=== PATIENT | male | born 1990 | race Two or more races ===

== ENCOUNTER 2024-05-22 10:18 | Emergency (ER) | payer SELFPAY ==
[2024-05-22] MEDS: Sodium Chloride 0.9% 10 ML Syringe FLUSH ONE (11:05)
[2024-05-22] MEDS: Iopamidol 612 MG/ML 100 ML Bottle IVPUSH ONE (11:05)
[2024-05-22] MEDS: HYDROmorphone 0.5 MG/0.5 ML Syringe IVPUSH ONE (11:37)
[2024-05-22] MEDS: Ketorolac 30 MG/ML SDV IVPUSH ONE (11:37)
[2024-05-22] MEDS: Sodium Chloride 0.9% 10 ML Syringe FLUSH PRN (11:42)
[2024-05-22 11:43] LABS: BASOPHILS PERCENT AUTO 0.4 % (0.0-1.0); EOSINOPHILS ABSOLUTE AUTO 0.1 K/mm3 (0.0-0.4); EOSINOPHILS PERCENT AUTO 0.9 % (0.0-6.0); HEMATOCRIT 49.4 % (42.0-52.0); HEMOGLOBIN 16.8 gm/dl (14.0-18.0); IMMATURE GRAN ABSOLUTE AUTO 0.04 K/mm3 (0.00-0.05); IMMATURE GRAN PERCENT AUTO 0.5 % (0.0-0.4); LYMPHOCYTES ABSOLUTE AUTO 2.2 K/mm3 (1.0-4.8); LYMPHOCYTES PERCENT AUTO 25.7 % (24.0-44.0); MEAN CORPUSCULAR HEMOGLOBIN 29.4 pg (28.0-32.0); MEAN CORPUSCULAR VOLUME 86.5 fl (83.0-99.0); MEAN PLATELET VOLUME 9.8 fl (9.4-12.4); MONOCYTES PERCENT AUTO 11.6 % (0.0-8.0); NEUTROPHILS ABSOLUTE AUTO 5.2 K/mm3 (1.8-7.7); NEUTROPHILS PERCENT AUTO 60.9 % (41.0-71.0); PLATELET COUNT,PLT 203 K/mm3 (150-400); RED BLOOD CELL COUNT 5.71 M/mm3 (4.52-5.90); WHITE BLOOD CELL COUNT,WBC 8.48 K/mm3 (3.9-11.3)
[2024-05-22 12:20] LABS: A/G RATIO 0.9 (1-2); ALBUMIN 3.7 g/dl (3.4-5.0); ANION GAP 12.6 (5-15); BILIRUBIN TOTAL 2.9 mg/dL (0.2-1.0); C-REACTIVE PROTEIN 4.62 mg/dL (<0.30); CALCIUM 8.9 mg/dL (8.5-10.1); EST CRCL DRUG DOSING (CG) 102.6 mL/min; POTASSIUM,K 3.6 mEq/L (3.5-5.1); PROTEIN TOTAL,TP 7.8 g/dl (6.4-8.2)
== END 2024-05-22 14:30 | disposition home or self-care (01) ==
LOC: JD.ED 10:18
DX: S02.652A Fracture of angle of left mandible, initial encounter for closed fracture (principal); F17.210 Nicotine dependence, cigarettes, uncomplicated; W19.XXXA Unspecified fall, initial encounter
CPT/HCPCS: 36415; 70450; 70487; 70491; 80053; 85025; 86140; 96374; 96375; 99284; J1170; J1885; J3490; Q9967

== ENCOUNTER 2024-07-05 21:56 | Emergency (ER) | payer OTHER ==
[2024-07-06] MEDS: Ibuprofen 800 MG Tab PO ONE (00:04)
[2024-07-06] MEDS: Bacitracin Oint 15 GM Tube TOP ONE (00:05)
[2024-07-06] MEDS: predniSONE 20 MG Tab PO ONE (00:05)
== END 2024-07-06 01:10 | disposition home or self-care (01) ==
LOC: JD.ED 21:56
DX: T63.301A Toxic effect of unspecified spider venom, accidental (unintentional), initial encounter (principal); F17.210 Nicotine dependence, cigarettes, uncomplicated
CPT/HCPCS: 99282; A9270; J7512; 99283